=== PATIENT | female | born 1950 | race Caucasian/White ===

== ENCOUNTER 2018-07-13 08:54 | Day surgery (SDC) | payer OTHER ==
--- OUTSIDE RECORDS SUMMARY | 2018-07-13 08:57 | XMS REPORT | Clinical Summary ---
:1950 Author Organization [facility] Address [address] [place] [address] Care Team Providers Name Role Phone Idalia Warner MD Primary Care Provider Allergies No Known Allergies Medications Medication Sig Dispensed Refills Start Date End Date Status levothyroxine (SYNTHROID, 0 08/18/2017 Active LEVOXYL) 50 mcg tablet progesterone (PROMETRIUM) TK 1 C PO QHS 0 07/27/2017 Active 200 MG capsule AND 1 C PO QAM amLODIPine (NORVASC) 5 mg TK ONE T PO QAM 2 09/15/2017 Active tablet Active Problems Not on file Encounters Date Type Specialty Care Team Description 10/12/2017 Hospital Encounter Radiology Idalia Warner Breast lump; MD Rafael Family history of breast cancer 10/12/2017 Hospital Encounter Radiology Idalia Warner Disorder of breast ; MD Rafael Breast lump; Family history of breast cancer 10/03/2017 Office Visit Family Medicine Idalia Warner Breast lump ( Primary Dx); MD Rafael Family history of breast cancer; Disorder of breast after 07/12/2017 Social History Tobacco Use Types Packs/Day Years Used Date Never Smoker Smokeless Tobacco: Never Used Alcohol Use Drinks/Week oz/Week Comments No Sex Assigned at Date Recorded Not on file Job Start Date Occupation Industry Not on file Not on file Not on file Travel History Travel Start Travel End No recent travel history available. Last Filed Vital Signs Vital Sign Reading Time Taken Blood Pressure 121/87 10/03/2017 2:27 PM [employer] Pulse 68 10/03/2017 2:27 PM [employer] Temperature 36.8 C (98.2 F) 10/03/2017 2:27 PM [employer]OB PLAC[employer]IST Respiratory Rate - - Oxygen Saturation 97% 10/03/2017 2:27 PM [employer]OB PLACEMENT [employer]IST Inhaled Oxygen Concentration - - Weight 88.9 kg (196 lb) 10/03/2017 2:27 PM JOB PLACEMENT SPECIALIST Height 162.6 cm (5' 4") 10/03/2017 2:27 PM JOB PLACEMENT [employer]IST Body Mass Index 33.64 10/03/2017 2:27 PM JOB PLACEMENT SPECIALIST Plan of Treatment Health Maintenance Due Date Last Done Comments COLON CANCER SCREENING 2001 SHINGRIX VACCINE (1 of 2) 2001 ZOSTER VACCINE 2011 PNEUMOCOCCAL POLYSACCHARIDE VACCINE AGE 65 2016 AND OVER PNEUMOCOCCAL-13 2016 INFLUENZA VACCINE 03/14/2018 BREAST CANCER SCREENING 10/13/2019 10/12/2017, 10/12/2017 Procedures Procedure Name Priority Date/Time Associated Comments Diagnosis US BREAST COMPLETE Routine 10/12/2017 3:58 Breast lump Results for this BILATERAL PM [employer]IST Family history of procedure are in breast cancer the results section. MAMMO BREAST Routine 10/12/2017 3:30 Disorder of breast Results for this DIAGNOSTIC PM [employer]IST Breast lump procedure are in TOMOSYNTHESIS Family history of the results BILATERAL breast cancer section. after 07/12/2017 Results US Breast Complete Bilateral (10/12/2017 3:58 PM JOB PLACEMENT SPECIALIST) Narrative Performed At PROCEDURE: MAMMO BREAST DIAGNOSTIC TOMOSYNTHESIS BILATERAL, US BREAST HM RADIANT COMPLETE BILATERAL Computer aided detection was utilized for the interpretation of the diagnostic mammography. 2-D and 3-D mammography accomplished as well as bilateral breast ultrasound. HISTORY:67-year-old female with N 64.9. Disorder of breast unspecified. N 63.0. Unspecified lump in breast. The patient complains of a palpable nodule on the left breast. This is on the inner aspect of the left breast and a BB marker was placed on this region and the MLO position shows this to be in the upper portion of the left breast. COMPARISON: None available DENSITY: There are scattered areas of fibroglandular density. FINDINGS: No mammographic findings of a mass or abnormal calcification or adverse changes. Bilateral breast ultrasound complete. Scanning in all 4 quadrants and subareolar regions with close over short and damage clerk supervision accomplished. A few scattered simple cysts are seen in the left breast. The largest one is a simple cyst measuring around 5 mm mid depth, upper inner quadrant. No suspicious masses noted. No spiculated masses. IMPRESSION:No suspicious or solid mass. RECOMMENDATION: Correlation with physical exam and annual mammography. BI-RADS 2: Benign findings. This faciility is accredited by the [place] [employer] for Mammography. A negative x-ray report should not delay biopsy if a dominant or clinically suspicious mass is present.Not all cancers are identified by x-ray. [facility]-[id number] Performing Organization Address City/State/Zipcode Phone Number [facility] [address] [place] [address] Mammo Breast Diagnostic Tomosynthesis Bilateral (10/12/2017 3:30 PM JOB PLACEMENT SPECIALIST) Narrative Performed At PROCEDURE: MAMMO BREAST DIAGNOSTIC TOMOSYNTHESIS BILATERAL, US BREAST RADIANT COMPLETE BILATERAL Computer aided detection was utilized for the interpretation of the diagnostic mammography. 2-D and 3-D mammography accomplished as well as bilateral breast ultrasound. HISTORY:67-year-old female with N 64.9. Disorder of breast unspecified. N 63.0. Unspecified lump in breast. The patient complains of a palpable nodule on the left breast. This is on the inner aspect of the left breast and a BB marker was placed on this region and the MLO position shows this to be in the upper portion of the left breast. COMPARISON: None available DENSITY: There are scattered areas of fibroglandular density. FINDINGS: No mammographic findings of a mass or abnormal calcification or adverse changes. Bilateral breast ultrasound complete. Scanning in all 4 quadrants and subareolar regions with close over short and damage clerk supervision accomplished. A few scattered simple cysts are seen in the left breast. The largest one is a simple cyst measuring around 5 mm mid depth, upper inner quadrant. No suspicious masses noted. No spiculated masses. IMPRESSION:No suspicious or solid mass. RECOMMENDATION: Correlation with physical exam and annual mammography. BI-RADS 2: Benign findings. This faciility is accredited by the [place] [employer] for Mammography. A negative x-ray report should not delay biopsy if a dominant or clinically suspicious mass is present.Not all cancers are identified by x-ray. [facility]-[id number] Performing Organization Address City/State/Zipcode Phone Number [employer] [address] [place] [address] after 07/12/2017 Insurance Payer Benefit Plan / Group Subscriber ID Type Phone Address [facility] xxxxxx-x Commercial MEDICARE MEDICARE PART A AND B xxxxxxxxxx Medicare [place], [place] Advance Directives Patient has advance care planning documents on file. For more information, please contact:Alvin Rodriguez[address] [place] [address]
[2018-07-13] MEDS ORDERED: PROPOFOL 200 MG/20 ML VIAL IV ONE ×2 (08:59→10:34)
[2018-07-13 09:00] LABS: Urine Appearance CLOUDY; Urine Bilirubin NEGATIVE (NEG); Urine Blood NEGATIVE (NEG); Urine Color DK YELLOW; Urine Glucose NEGATIVE (NEG); Urine Protein NEGATIVE (NEG); Urine Specific Gravity 1.025 (1.005-1.030); Urine Urobilinogen 0.2 mg/dL (0.2-1.0)
[2018-07-13 09:00] LABS: Absolute Lymphocytes (CBC) 2.6 K/uL (0.7-4.9); Absolute Monocytes 0.9 K/uL (0.1-1.3); Absolute Neutrophil 7.8 K/uL (1.8-8.0); Basophils % 1.1 % (0-1.3); Eosinophils % 1.1 % (0-4.4); Hematocrit 45.2 % (36.0-45.0); Lymphocytes % 22.3 % (15.3-44.8); MCH 31.6 pg (27.0-35.0); MCV 91.8 fL (80-100); MPV 9.6 fL (7.6-11.3); RBC Red Blood Cell Count 4.92 M/uL (3.86-4.86)
[2018-07-13] MEDS ORDERED: NS 0.9% VIAL 10 ML ONE (09:00)
[2018-07-13] MEDS ORDERED: LIDOCAINE 1% MPF 5 ML VIAL ONE (09:00)
[2018-07-13] MEDS ORDERED: VECURONIUM 10 MG/VIAL IV ONE (09:00)
[2018-07-13] MEDS ORDERED: MIDAZOLAM HCL 2 MG/2 ML INJ ONE (09:00)
[2018-07-13] MEDS ORDERED: DEXAMETHASONE 10 MG/ML VIAL ONE (09:00)
[2018-07-13] MEDS ORDERED: FENTANYL CITR 250 MCG/5 ML ONE ×3 (09:03→13:55)
[2018-07-13] MEDS ORDERED: ONDANSETRON HCL 40 MG/20 ML VIAL ONE (09:04)
[2018-07-13 09:07] LABS: Potassium 4.6 mmol/L (3.5-5.1)
[2018-07-13 09:07] LABS: Urine Microscopic Reflex ORDER UMIC
[2018-07-13] MEDS ORDERED: CEFAZOLIN 1GM (PREMIX IV) 1 GM/50 ML BAG ONE (09:11)
[2018-07-13] MEDS ORDERED: NS 0.9% VIAL 20 ML ONE (09:11)
[2018-07-13] MEDS ORDERED: Ringers Lactate 1,000 ML IV ONE ×3 (09:11→09:14)
[2018-07-13] MEDS ORDERED: SCOPOLAMINE HYDROBROMIDE PATCH TD ONE (09:11)
[2018-07-13] MEDS ORDERED: EPINEPHRINE/PF 1 MG/ML AMP ONE (09:11)
[2018-07-13] MEDS ORDERED: CEFAZOLIN SODIUM 1 GM/VIAL ONE (09:11)
[2018-07-13] MEDS ORDERED: NA CHLORIDE 0.9% 0 ML ONE (09:12)
[2018-07-13] MEDS ORDERED: GENTAMICIN SULF 80 MG/2ML INJ ONE (09:12)
[2018-07-13] MEDS ORDERED: Mastisol Adhesive Liq ONE ×2 (09:12→14:33)
[2018-07-13] MEDS ORDERED: BACITRACIN 50000 UNIT VIAL ONE (09:13)
[2018-07-13 09:18] LABS: Urine Amorphous Sediment 1+ /HPF (NONE SEEN); Urine Bacteria <20 /HPF (<20); Urine Culture Reflex Order NOT NEEDED; Urine RBC <5 /HPF (NONE SEEN)
--- NOTE | 2018-07-13 09:21 | RAD REPORT ---
EXAM DESCRIPTION: Deny Torres (2 Views)07/13/2018 8:53 am CLINICAL HISTORY: Preop for breast surgery COMPARISON: None FINDINGS: The lungs appear clear of acute infiltrate. The heart is normal size IMPRESSION: No acute abnormalities displayed
[2018-07-13] MEDS ORDERED: LANO/MINERAL OIL/PETRO 3.5 GM ONE (09:26)
[2018-07-13] MEDS ORDERED: KETOROLAC 30 MG/ML INJ ONE (13:15)
--- NOTE | 2018-07-13 14:15 | EKG ---
Test Date: 2018-07-13 Test Time: 08:40:00 Commercial Energy Auditor: ARNOL MEASUREMENT RESULTS: Intervals: Rate: 57 NM: 150 QRSD: 78 QT: 400 QTc: 389 [place]: P: 8 NM: 150 QRS: 55 T: 39 INTERPRETIVE STATEMENTS: Sinus bradycardia Otherwise normal ECG No previous ECG available for comparison Electronically Signed On 07-13-18 14:14:07 MACHINE ENGRAVER by Kvng Musa
[2018-07-13] MEDS ORDERED: GLYCOPYRROLATE 0.2 MG/ML SYR ONE (14:40)
[2018-07-13] MEDS ORDERED: NEOSTIGMINE 1 MG/ML -5 ML SYRINGE ONE (14:41)
[2018-07-13] MEDS: HYDROMORPHONE HCL 1 MG/ML INJ ONE ×6 (15:15→15:55)
[2018-07-13] MEDS: D5LR 1,000 ML IV SCH (16:00)
[2018-07-13] MEDS: MEPERIDINE HCL 50 MG/ML AMP IV PRN ×2 (17:49→22:12)
[2018-07-13] MEDS: CEFAZOLIN 500 MG in NA CHLORIDE 0.9% 50 ML IV SCH (17:50)
[2018-07-14] MEDS: CEFAZOLIN 500 MG in NA CHLORIDE 0.9% 50 ML IV SCH ×2 (00:05→06:00)
--- NOTE | 2018-07-14 01:56 | HP ---
Date of Admission: 07/13/2018 History Of Present Illness: The patient is a 67-year-old, white female, who requests a tummy tuck an d breast lift. She has a family history of breast cancer in her mother, grandmother. Her mammogram is negative. She is status post a tummy tuck in , requesting repeat when she is 37D. Does not lik e a breast descent. She has history of thyroid disease; for which, she takes medication. Past Surgical History: Tummy tuck, face lift. Social History: Does not smoke. Does drink. Allergies: NO ALLERGIES. Medications: She is on thyroid supplement. Physical Examination: Vital Signs: She is 5 feet and 4 inches, 106 pounds. Breasts: Her breasts are ptotic, this was inferolaterally. Abdomen: She has a scar from previous tummy tuck from an inferior incision. Assessment: Breast descent and abdominal lipodystrophy. Plan: Breast lift and abdominoplasty. FLAQUITO/MONICO Voice ID: [id number]
[2018-07-14] MEDS: D5LR 1,000 ML IV SCH (02:00)
[2018-07-14] MEDS: MEPERIDINE HCL 50 MG/ML AMP IV PRN ×2 (03:43→08:54)
[2018-07-14] MEDS ORDERED: ONDANSETRON 4 MG/2 ML VIAL IV PRN (07:16)
[2018-07-14] MEDS ORDERED: ACETAMINOPHEN 500 MG TAB PO PRN (11:17)
--- NOTE | 2018-07-17 13:05 | OP ---
Surgeon: Ivan Hartley MD Sail Cutter: Don. Preoperative Diagnoses: Breast descent and abdominal lipodystrophy. Postoperative Diagnoses: Breast descent and abdominal lipodystrophy. Procedure Performed: Breast lift and abdominoplasty. Anesthesia: General. Description Of Procedure: After satisfactory induction of general anesthesia, the chest and abdomen and breasts were prepped with Betadine scrub, Betadine paint, dry sterile drapes applied in the usual manner. A felt-tip marking pen was used to outline a 42 template around the right and left areolas and then transverse incision was outlined as well as inferior incision. The intervening skin was inc ised with a scalpel and the intervening tissue was de-epithelialized with dermabrader and EpiCut. Fl ap was elevated toward the sternum, clavicle, anterior axillary line and dissection procee ded down inferiorly. An inferior incision was made. The de-epithelialized tissue was formed into co ne. This was done using 2-0 PDS. After the cone was formed, then straps elevated at the 12 o'clock, 1:30, and 3 o'clock positions. Mirror image on the opposite breast. The straps were then woven in and out of the pectoralis major muscle, back to the base of the cone, back to themselves, and eventua lly tied to themselves with 2-0 PDS. The strap at 3 o'clock position was sewn, over the sternum at 3 o'clock position with 2-0 Ethibond. Left side was done in a mirror image manner. excess skin marked off, and was excised, and then 10 LETITIA drain was brought out the axilla and sewn in place with 2-0 silk. Wound was then closed with 3-0 Vicryl subcu, 3-0 PDS running subcuticular tied in the vertical meridian of the breast. Both sides were done simultaneously and then site for new nipple-a reolar complex was marked out. A 42 template was used to core out tissues, nipples were delivered, a nd sewn in place with 4-0 PDS interrupted, followed by 4-0 PDS running subcuticular. Attention was t hen turned to the abdomen. The previous curvilinear incision was incised, and either side of the midline and dissected down to the previous dissection flap, and it was elevated all the way t o the costal margin and the sternum. Excess skin was then cut off. Incision was made in Y shape ___ umbilicus hernia through. Elliptical incision was made around the umbilicus at the beginning of the case. The wound was then closed with running 3-0 Vicryl closing the space. Quilting tavera tures and both lateral sides. A 10 LETITIA was brought out laterally, sewn in place with 2-0 s ilk, and then wound was closed with 3-0 Vicryl subcu, 3-0 PDS running subcuticular tied in the vertic al meridian of the abdominal wall. Umbilicus was closed with interrupted 4-0 Prolene sutures. Dress ings of tincture of benzoin, Steri-Strips, 4 x 4's, elastic tape over the abdomen. The breasts were covered with tincture of benzoin, Steri-Strips, 5 x 5's, fluffs, and Evan wrap. The patient tolerated the procedure well and returned to recovery room. The amount removed from the right breast was 50 g , left breast 24 g, right abdomen 450 g, and left abdomen 470 g. FLAQUITO/MONICO Voice ID: [id number] Report ID: [id number]
--- NOTE | 2018-07-17 13:05 | DS ---
Date of Discharge: 07/14/2018 A 67-year-old white female who requests a tummy tuck and breast lift. She is status post tummy tuck . Family history is positive for breast cancer in mother and grandmother. She has history of thyroid disease, previous tummy tuck, and facelift. She . She does not smoke. Does n ot drink. No allergies. She is on thyroid medication. She is 5 feet 4 inches and 160 pounds. She has hanging , abdominal scar from her tummy tuck. She does have abdominal lipodystrophy an d breast descent. She underwent a breast lift and abdominoplasty. The following day, her breast feliz ssing was changed, and she was placed back in the preoperative bra. Her abdominal dressing was remov ed and . She will be discharged to home she voids and eats, home going medicati ons. Prescription given to her Phenergan 25 mg p.o. q.6 hours p.r.n. pain. Sh e will return to office following Monday at 3 o'clock at [facility]. Condition on discharge is good. FLAQUITO/MONICO Voice ID: [id number] Report ID: [id number]
== END 2018-07-14 12:25 | disposition home or self-care (01) ==
LOC: OR 08:54 → 2ND 14:29 → OR 07-14 12:25
PROVIDERS: ATTEND Specialist
PROC: 0H0V0ZZ Alteration of Bilateral Breast, Open Approach (ICD-10-PCS; principal; 2018-07-13 09:00)
PROC: 0J080ZZ Alteration of Abdomen Subcutaneous Tissue and Fascia, Open Approach (ICD-10-PCS; 2018-07-13 09:00)
DX: N64.81 Ptosis of breast (principal); E88.1 Lipodystrophy, not elsewhere classified; E07.9 Disorder of thyroid, unspecified; Z80.3 Family history of malignant neoplasm of breast
CPT/HCPCS: 36415; 71046; 80048; 81003; 81015; 85025; 88302; 88305; 93005; J0171; J0690; J1100; J1170; J1580; J2175; J2250; J2405; J2704; J2710; J3010; J7030